=== PATIENT | male | born 1995 | race Caucasian/White ===

== ENCOUNTER → 2017-01-18 | Outpatient (CLI) | payer OTHER | END | disposition home or self-care (01) | LOC: RAD.S 15:42 | DX: M25.511 Pain in right shoulder (principal); G56.81 Other specified mononeuropathies of right upper limb ==

== ENCOUNTER → 2017-02-19 | Outpatient (CLI) | payer SELFPAY | END | disposition home or self-care (01) | LOC: RAD.S 09:15 | DX: M25.511 Pain in right shoulder (principal); G89.29 Other chronic pain ==

== ENCOUNTER 2017-03-04 14:46 | Emergency (ER) | payer OTHER ==
--- NOTE | 2017-03-22 16:41 | ER ---
ADMIT: 03/04/2017 RM/LOC: ER [facility] MR#: [id number] [address] [facility] [address] [place], [place] [id number] KAY SALESR ISAEL [address] [place] [address] Emergency Room Report SEX: M AGE: 21 : 1995 DATE: 03/04/2017 CHIEF COMPLAINT: "Stomach pain." HISTORY OF PRESENT ILLNESS: A 21-year-old male presents to the ER for evaluation after intermittent episodes of abdominal pain for the past month. States he recently had a carpal tunnel surgery completed. Since then, he has had off and on stomach pain. States it typically lasts about 3 days, he gets to the point where he is diaphoretic, nauseous, vomiting, diarrhea, feeling very poorly. States he did talk with his aunt, who is a physician here, recommended he start [id number] Pepcid to see if he would have any improvement in his symptoms. He states he did not notice this to improve much things; however, it does not sound like he had an exacerbation of his pain during this time. No past medical history of any abdominal surgeries or abdominal ailments. No family history of any autoimmune or other colitis type diseases. Note sometimes that this pain does get worse with food; however, he has not made a strong correlation between the 2. No triggers specifically identified. He has tried the Pepcid as above, also has tried [id number] Pepto and antinausea medications with a little relief. States he has never had this in the past, it has just flared up very recently. He is otherwise a healthy kid, nonsmoker. No drugs. Rarely uses alcohol. No known drug allergies. He was placed on the meloxicam after his carpal tunnel surgery. He has been off this medication for a month now and has not noticed any change. COURSE IN THE EMERGENCY ROOM: The patient was seen and examined. He is afebrile and nontoxic. No acute distress. He does have some very mild tenderness to palpation, states slightly worse in the left and right lower quadrants. However, no guarding or rebound. No McBurney's point tenderness. No CVA tenderness. Skin is warm and dry. Laboratory studies today are unremarkable. No signs of acute infection. Normal white count. Urine unremarkable. Kidney, liver, bladder, and gallbladder. I did do CT abdomen and pelvis today, slight concern for underlying enteritis source given its intermittency and refractory to treatment at this point. I discussed this with Dr. Weeks. She did not see anything to suggest secondary signs of any colitis today. While in the department, I did give him 4 mg of Zofran IV as well as 15 mg of Toradol and GI cocktail. States these medicines have necessarily improved his pain. Does have a family member, I believe his mother, who has been diagnosed with irritable bowel syndrome. ADMIT: 03/04/2017 RM/LOC: [facility] MR#: [id number] [address] [place] [id number] [address] [place] [address] [place] [address] Emergency Room Report SEX: M AGE: 21 : 1995 IMPRESSION: 1. Generalized abdominal pain. 2. Nausea, vomiting, and diarrhea. DISPOSITION: The patient was discharged to home. I did tell him to perhaps try the Pepcid [id number] daily as needed or as directed on the packaging 30 minutes before his first meal for an extended course to see if this would improve his pain. I did recommend he follow up with Dr. Ornelas next week as this likely needs further evaluation with possible referral to Gastroenterology if he does not improve. Certainly return with any worsening signs or symptoms. Follow up with Dr. Ornelas next week. WANDA Lopez / Gurpreet Veliz MD / modl JOB #: [id number] CC: Rod Mena MD, Attending Physician Daniel Ornelas MD, Family Physician
== END 2017-03-04 17:20 | disposition home or self-care (01) ==
LOC: ER 14:46
DX: R10.84 Generalized abdominal pain (principal); R11.2 Nausea with vomiting, unspecified; R19.7 Diarrhea, unspecified; Z79.899 Other long term (current) drug therapy